=== PATIENT | male | born 1975 | race Caucasian/White ===

== ENCOUNTER 2018-06-03 15:15 | Emergency (ER) | payer OTHER ==
[~2018-06-03] VITALS: Ht 182.9 cm; Wt 112.5 kg
[2018-06-03] MEDS ORDERED: ASPIRIN 325 MG TABLET PO ONE (16:00)
--- NOTE | 2018-06-03 16:03 | EKG ---
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
--- NOTE | 2018-06-03 16:08 | PHYS DOC ---
Past Medical History Past Medical History: Hypertension Adult General Chief Complaint Chief Complaint: CHEST PAIN-CARDIAC NATURE HPI HPI Patient is a 42 year old male with a history of hypertension but is currently controlled by diet and exercise who presents today with multiple complaints. Patient states sometime this morning he developed bilateral upbeat pain rated at 3 out of 10 described as discomfort, but lasted for a few minutes. Patient states then later on during the morning he developed some tingling along his ulnar nerve that was intermittent. Patient states the symptoms were coming and going to bilateral upper extremities. He states he also developed a 3 out of 10 left upper chest discomfort. Patient states the symptoms subsided right away. She states right now he doesn't have any symptoms. Patient states he used to smoke but stopped smoking. Patient has hx of anxiety stopped taking Effexor because it interfered with his sex life. Review of Systems Review of Systems Constitutional: Denies fever or chills [] Eyes: Denies change in visual acuity, redness, or eye pain [] HENT: Denies nasal congestion or sore throat [] Respiratory: Denies cough or shortness of breath [] Cardiovascular: Reports chest discomfort GI: Denies abdominal pain, nausea, vomiting, bloody stools or diarrhea [] : Denies dysuria or hematuria [] Musculoskeletal: Denies back pain or joint pain [] Integument: Denies rash or skin lesions [] Neurologic: Denies headache, focal weakness or sensory changes [] All other systems were reviewed and found to be within normal limits, except as documented in this note. Current Medications Current Medications Current Medications Medications (Trade) Dose Ordered Sig/Josefina Start Time Stop Time Status Last Admin Dose Admin Aspirin (Sally Aspirin) 325 mg 1X ONCE 06/03/18 16:00 06/03/18 16:13 DC 06/03/18 16:22 325 MG Allergies Allergies Allergies Coded Allergies Type Severity Reaction Last Updated Verified No Known Drug Allergies 06/03/18 No Physical Exam Physical Exam Constitutional: Well developed, well nourished, no acute distress, non-toxic appearance. [] HENT: Normocephalic, atraumatic, bilateral external ears normal, oropharynx moist, no oral exudates, nose normal. [] Eyes: PERRLA, EOMI, conjunctiva normal, no discharge. [] Neck: Normal range of motion, no tenderness, supple, no stridor. [] Cardiovascular:Heart rate regular rhythm, no murmur [] Lungs & Thorax: Bilateral breath sounds clear to auscultation [] Abdomen: Bowel sounds normal, soft, no tenderness, no masses, no pulsatile masses. [] Skin: Warm, dry, no erythema, no rash. [] Back: No tenderness, no CVA tenderness. [] Extremities: No tenderness, no cyanosis, no clubbing, ROM intact, no edema. [] Neurologic: Alert and oriented X 3, normal motor function, normal sensory function, no focal deficits noted. [] Psychologic: Affect normal, judgement normal, mood normal. [] Current Patient Data Vital Signs Vital Signs Date Time Temp Pulse Resp B/P (MAP) Pulse Ox O2 Delivery O2 Flow Rate FiO2 06/03/18 16:21 78 141/88 (105) 99 Room Air 06/03/18 15:47 97.7 18 97.7 Lab Values Laboratory Tests Test 06/03/18 16:00 06/03/18 17:14 White Blood Count 6.3 x10^3/uL (4.0-11.0) Red Blood Count 5.14 x10^6/uL (4.30-5.70) Hemoglobin 16.2 g/dL (13.0-17.5) Hematocrit 47.9 % (39.0-53.0) Mean Corpuscular Volume 93 fL (79-100) Mean Corpuscular Hemoglobin 32 pg (25-35) Mean Corpuscular Hemoglobin Concent 34 g/dL (31-37) Red Cell Distribution Width 12.9 % (11.5-14.5) Platelet Count 235 x10^3/uL (140-400) Neutrophils (%) (Auto) 55 % (31-73) Lymphocytes (%) (Auto) 32 % (24-48) Monocytes (%) (Auto) 10 % (0-9) H Eosinophils (%) (Auto) 2 % (0-3) Basophils (%) (Auto) 1 % (0-3) Neutrophils # (Auto) 3.5 x10^3uL (1.8-7.7) Lymphocytes # (Auto) 2.0 x10^3/uL (1.0-4.8) Monocytes # (Auto) 0.6 x10^3/uL (0.0-1.1) Eosinophils # (Auto) 0.1 x10^3/uL (0.0-0.7) Basophils # (Auto) 0.1 x10^3/uL (0.0-0.2) D-Dimer (Laverne) 0.27 ug/mlFEU (0.00-0.50) Sodium Level 138 mmol/L (136-145) Potassium Level 3.8 mmol/L (3.5-5.1) Chloride Level 100 mmol/L (98-107) Carbon Dioxide Level 28 mmol/L (21-32) Anion Gap 10 (6-14) Blood Urea Nitrogen 11 mg/dL (8-26) Creatinine 0.9 mg/dL (0.7-1.3) Estimated GFR (Cockcroft-Gault) 93.0 BUN/Creatinine Ratio 12 (6-20) Glucose Level 99 mg/dL (70-99) Calcium Level 9.1 mg/dL (8.5-10.1) Magnesium Level 2.0 mg/dL (1.8-2.4) Total Bilirubin 0.6 mg/dL (0.2-1.0) Aspartate Amino Transferase (AST) 59 U/L (15-37) H Alanine Aminotransferase (ALT) 99 U/L (16-63) H Alkaline Phosphatase 77 U/L (46-116) Troponin I Quantitative < 0.017 ng/mL (0.000-0.055) JG-Vkz-E-Type Natriuretic Peptide 9 pg/mL (0-124) Total Protein 7.8 g/dL (6.4-8.2) Albumin 3.8 g/dL (3.4-5.0) Albumin/Globulin Ratio 1.0 (1.0-1.7) Thyroid Stimulating Hormone (TSH) 2.424 uIU/mL (0.358-3.74) Urine Color Yellow Urine Clarity Clear Urine pH 7.5 Urine Specific [place] 1.020 Urine Protein Negative mg/dL (NEG-TRACE) Urine Glucose (UA) Negative mg/dL (NEG) Urine Ketones (Stick) 15 mg/dL (NEG) Urine Blood Negative (NEG) Urine Nitrite Negative (NEG) Urine Bilirubin Negative (NEG) Urine Urobilinogen Dipstick 0.2 mg/dL (0.2 mg/dL) Urine Leukocyte Esterase Negative (NEG) Urine RBC 0 /HPF (0-2) Urine WBC Occ /HPF (0-4) Urine Squamous Epithelial Cells Occ /LPF Urine Bacteria 0 /HPF (0-FEW) Urine Opiates Screen Neg (NEG) Urine Methadone Screen Neg (NEG) Urine Barbiturates Neg (NEG) Urine Phencyclidine Screen Neg (NEG) Urine Amphetamine/Methamphetamine Neg (NEG) Urine Benzodiazepines Screen Neg (NEG) Urine Cocaine Screen Neg (NEG) Urine Cannabinoids Screen Neg (NEG) Urine Ethyl Alcohol Neg (NEG) Laboratory Tests 06/03/18 16:00 Laboratory Tests 06/03/18 16:00 EKG EKG 15:[address] Fregoso sinus rhythm HR 71 no STEMI[] Radiology/Procedures Radiology/Procedures []PROCEDURE: PORTABLE CHEST 1V AP chest 06/03/2018 CLINICAL INDICATION: Chest pain and tingling into the left arm. COMPARISON: None. FINDINGS: Cardiac and mediastinal silhouettes are unremarkable. No pleural effusion, pneumothorax or focal consolidation. IMPRESSION: No acute cardiopulmonary abnormality. Electronically signed by: Kenney Berg MD (06/03/2018 4:04 PM) [facility] DICTATED and SIGNED BY: KENNEY BERG MD DATE: 06/03/18 1604 PROCEDURE: CT HEAD WO CONTRAST PQRS Compliance Statement: One or more of the following individualized dose reduction techniques were utilized for this examination: 1. Automated exposure control 2. Adjustment of the mA and/or kV according to patient size 3. Use of iterative reconstruction technique CT head without contrast 06/03/2018 4:01 PM INDICATION: Left arm numbness and tingling COMPARISON: None available TECHNIQUE: Multiple axial CT images of the head were obtained from skull base through the vertex without intravenous contrast. FINDINGS: Head: Ventricles, sulci and basal cisterns are within normal limits. There is no hydrocephalus. Gallardo-white matter differentiation is normal. There is no acute intracranial hemorrhage. There is no mass, mass effect or midline shift. Posterior fossa is normal in appearance. There is attenuation higher than that of simple fluid within the suprasellar cistern measuring approximately 18 x 13 mm. Visualized portions of the orbits are normal. Paranasal sinuses are well aerated. Mastoid air cells are well aerated. Scalp and calvaria are normal. IMPRESSION: No acute intracranial hemorrhage. There is attenuation higher than that of simple fluid and suprasellar cistern measuring 18 x 13 mm. Further characterization with pituitary protocol MRI may be of benefit. Consideration may be given for a suprasellar mass or artifact within the suprasellar cistern. Electronically signed by: Zac Nj MD (06/03/2018 4:20 PM) [facility] DICTATED and SIGNED BY: ZAC NJ MD DATE: 06/03/18 1618 Course & Med Decision Making Course & Med Decision Making Pertinent Labs and Imaging studies reviewed. (See chart for details) This is a 42-year-old male patient presenting to the ED today with multiple complaints including bilateral armpit pain, numbness tingling to bilateral upper extremities running through the ulnar aspect, what he describes as chest discomfort rated at 3/10. Symptoms since this morning. Vitals on arrival to the ED temperature 97.7 heart rate 72-78, respiration 18-20 blood pressure 140s over 80s. Patient appeared anxious on arrival to the ED, has history of anxiety , was on Effexor, stopped taking it because it interfered with his sex life. He was advised to follow-up with his PCP for anxiety and medications to manage his symptoms. EKG is negative, chest x-ray is negative, troponin is normal, CBC is normal, CMP with AST of 59 ALT of 99, patient has no abdominal pain. D-dimer is normal. Heart score 1-patient should follow-up with coffee weigher as an outpatient. CT of the head was negative for any acute intracranial hemorrhage, was noted for attenuation higher than that of simple fluid and suprasellar cistern measuring 18 x 13 mm. Further characterization with pituitary protocol MRI may be of benefit. Consideration may be given for a suprasellar mass or artifact within the suprasellar cistern. Results were discussed with the patient, provided instructions to follow-up with the PCP or neurologist for an outpatient MRI in 2 days. F/u with coffee weigher provided in the next 2 days. Dragon Disclaimer Dragon Disclaimer This electronic medical record was generated, in whole or in part, using a voice recognition dictation system. Departure Departure Impression: Primary Impression: Chest pain Additional Impressions: Radiculopathy of arm Anxiety Disposition: HOME, SELF-CARE Condition: STABLE Referrals: NO PCP (PCP) SAKINA CASTELLON MD follow up in 1 -2 days Patient Instructions: Chest Pain (Nonspecific), Radicular Pain Additional Instructions: You were evaluated in the emergency room. Please follow-up with the primary care doctor in the next 2 days for your symptoms including results showing up on his CT. Also follow-up with the coffee weigher if your chest discomfort continues. Problem Qualifiers Primary Impression: Chest pain Chest pain type: unspecified Qualified Codes: R07.9 - Chest pain, unspecified GEOVANNAMUKESH MUJICA DIA Jun 03, 2018 16:08
[2018-06-03 16:13] LABS: BASO # 0.1 x10^3/uL (0.0-0.2); BASO % 1 % (0-3); EOS # 0.1 x10^3/uL (0.0-0.7); EOS % 2 % (0-3); HEMATOCRIT 47.9 % (39.0-53.0); HEMOGLOBIN 16.2 g/dL (13.0-17.5); LYMPH % 32 % (24-48); MEAN CORPUSCULAR HEMOGLOBIN 32 pg (25-35); MEAN CORPUSCULAR HGB CONC 34 g/dL (31-37); MEAN CORPUSCULAR VOLUME 93 fL (79-100); MONO # 0.6 x10^3/uL (0.0-1.1); MONO % 10 % (0-9); NEUT # 3.5 x10^3uL (1.8-7.7); NEUT % 55 % (31-73); PLATELET COUNT 235 x10^3/uL (140-400); RED BLOOD COUNT 5.14 x10^6/uL (4.30-5.70); RED CELL DISTRIBUTION WIDTH 12.9 % (11.5-14.5); WHITE BLOOD COUNT 6.3 x10^3/uL (4.0-11.0)
--- NOTE | 2018-06-03 16:25 | RAD ---
RS Compliance Statement: One or more of the following individualized dose reduction techniques were utilized for this examination: 1. Automated exposure control 2. Adjustment of the mA and/or kV according to patient size 3. Use of iterative reconstruction technique CT head without contrast 06/03/2018 4:01 PM INDICATION: Left arm numbness and tingling COMPARISON: None available TECHNIQUE: Multiple axial CT images of the head were obtained from skull base through the vertex without intravenous contrast. FINDINGS: Head: Ventricles, sulci and basal cisterns are within normal limits. There is no hydrocephalus. Gallardo-white matter differentiation is normal. There is no acute intracranial hemorrhage. There is no mass, mass effect or midline shift. Posterior fossa is normal in appearance. There is attenuation higher than that of simple fluid within the suprasellar cistern measuring approximately 18 x 13 mm. Visualized portions of the orbits are normal. Paranasal sinuses are well aerated. Mastoid air cells are well aerated. Scalp and calvaria are normal. IMPRESSION: No acute intracranial hemorrhage. There is attenuation higher than that of simple fluid and suprasellar cistern measuring 18 x 13 mm. Further characterization with pituitary protocol MRI may be of benefit. Consideration may be given for a suprasellar mass or artifact within the suprasellar cistern. Electronically signed by: Dora Contreras MD (06/03/2018 4:20 PM) [facility]
[2018-06-03 16:30] LABS: CALCIUM 9.1 mg/dL (8.5-10.1); CREATININE 0.9 mg/dL (0.7-1.3); POTASSIUM 3.8 mmol/L (3.5-5.1)
[2018-06-03 16:35] LABS: ALBUMIN 3.8 g/dL (3.4-5.0); TOTAL BILIRUBIN 0.6 mg/dL (0.2-1.0); TOTAL PROTEIN 7.8 g/dL (6.4-8.2)
[2018-06-03 17:23] LABS: BILIRUBIN,URINE NEGATIVE (NEG); CLARITY,URINE CLEAR; COLOR,URINE YELLOW; NITRITE,URINE NEGATIVE (NEG); PH,URINE 7.5; PROTEIN,URINE NEGATIVE (NEG-TRACE); UROBILINOGEN,URINE 0.2 mg/dL (0.2 mg/dL)
[2018-06-03 17:36] LABS: BACTERIA,URINE 0 /HPF (0-FEW); RBC,URINE 0 /HPF (0-2); SQUAMOUS EPITHELIAL CELL,UR OCC /LPF; WBC,URINE OCC /HPF (0-4)
[2018-06-03 17:39] LABS: AMPHETAMINE/METHAMPHETAMINE NEG (NEG); BARBITURATES NEG (NEG); BENZODIAZEPINES NEG (NEG); CANNABINOIDS NEG (NEG); COCAINE NEG (NEG); METHADONE NEG (NEG); OPIATES NEG (NEG); PHENCYCLIDINE NEG (NEG)
[2018-06-03 18:19] VITALS: BP 137/88
== END 2018-06-03 18:32 | disposition home or self-care (01) ==
LOC: ER 15:15
DX: R07.89 Other chest pain (principal); M54.10 Radiculopathy, site unspecified; F41.9 Anxiety disorder, unspecified; I10 Essential (primary) hypertension; Z87.891 Personal history of nicotine dependence
CPT/HCPCS: 36415; 70450; 71045; 80053; 80307; 81001; 83735; 83880; 84443; 84484; 85025; 85379; 93005; 96365; 96366; 96367; 99284-25; 99285-25

== ENCOUNTER 2018-12-17 04:23 | Emergency (ER) | payer OTHER ==
[~2018-12-17] VITALS: Ht 182.9 cm; Wt 117.0 kg
[2018-12-17 04:55] LABS: BASO % 1 % (0-3); EOS # 0.3 x10^3/uL (0.0-0.7); EOS % 4 % (0-3); HEMATOCRIT 45.3 % (39.0-53.0); HEMOGLOBIN 15.6 g/dL (13.0-17.5); LYMPH # 2.9 x10^3/uL (1.0-4.8); LYMPH % 44 % (24-48); MEAN CORPUSCULAR HEMOGLOBIN 33 pg (25-35); MEAN CORPUSCULAR HGB CONC 35 g/dL (31-37); MEAN CORPUSCULAR VOLUME 94 fL (79-100); MONO # 0.7 x10^3/uL (0.0-1.1); MONO % 11 % (0-9); NEUT # 2.6 x10^3/uL (1.8-7.7); NEUT % 40 % (31-73); PLATELET COUNT 271 x10^3/uL (140-400); RED CELL DISTRIBUTION WIDTH 12.9 % (11.5-14.5); WHITE BLOOD COUNT 6.5 x10^3/uL (4.0-11.0)
--- NOTE | 2018-12-17 04:58 | EKG ---
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
[2018-12-17] MEDS ORDERED: NITROGLYCERIN SUBLINGUAL 0.4 MG BOTTLE OF 25. SL ONE (05:00)
--- NOTE | 2018-12-17 05:00 | PHYS DOC ---
Past Medical History Past Medical History: Anxiety, Hypertension, Other Additional Past Medical Histor: SLEEP APNEA W CPAP Past Surgical History: Appendectomy, Tonsillectomy, Other Additional Past Surgical Histo: HERNIA, MULTIPLE COLONOSCOPY Alcohol Use: Occasionally Drug Use: None Adult General Chief Complaint Chief Complaint: CHEST PAIN HPI HPI Patient is a 43 year old male who presents with complaining of chest pain. Patient complaining of intermittent episodes of left-sided chest squeezing pain for the last 3 days that usually last about few minutes and have pain for 5 times. Patient denies radiation of pain but complaining of dizziness, shortness of breath, generalized weakness without nausea and vomiting, fever and chills, cough and congestion, focal neuro deficit. Patient states he had 20 minutes of physical activity before starting of his pain and the pain getting worse with movement. Review of Systems Review of Systems Constitutional: Denies fever or chills [] Eyes: Denies change in visual acuity, redness, or eye pain [] HENT: Denies nasal congestion or sore throat [] Respiratory: Denies cough, reports shortness of breath [] Cardiovascular: No additional information not addressed in HPI [] GI: Denies abdominal pain, nausea, vomiting, bloody stools or diarrhea [] : Denies dysuria or hematuria [] Musculoskeletal: Denies back pain or joint pain [] Integument: Denies rash or skin lesions [] Neurologic: Denies headache, focal weakness or sensory changes [] Endocrine: Denies polyuria or polydipsia [] All other systems were reviewed and found to be within normal limits, except as documented in this note. Current Medications Current Medications Current Medications Medications (Trade) Dose Ordered Sig/Josefina Start Time Stop Time Status Last Admin Dose Admin Aspirin (Children'S Aspirin) 243 mg 1X ONCE 12/17/18 05:15 12/17/18 05:16 DC Nitroglycerin (Nitrostat) 0.4 mg 1X ONCE 12/17/18 05:00 12/17/18 05:11 DC 12/17/18 05:13 0.4 MG Allergies Allergies Allergies Coded Allergies Type Severity Reaction Last Updated Verified No Known Drug Allergies 06/03/18 No Physical Exam Physical Exam Constitutional: Well developed, well nourished, mild distress, non-toxic appearance. [] HENT: Normocephalic, atraumatic, oropharynx moist. Eyes: PERRLA, EOMI, conjunctiva normal, no discharge. [] Neck: Normal range of motion, no tenderness, supple, no stridor. [] Cardiovascular:Heart rate regular rhythm, no murmur [] Lungs & Thorax: Bilateral breath sounds clear to auscultation [] Abdomen: Bowel sounds normal, soft, no tenderness, no masses, no pulsatile masses. [] Skin: Warm, dry, no erythema, no rash. [] Back: No tenderness, no CVA tenderness. [] Extremities: No tenderness, no cyanosis, no clubbing, ROM intact, no edema. [] Neurologic: Alert and oriented X 3, normal motor function, normal sensory function, no focal deficits noted. [] Psychologic: Affect normal, judgement normal, mood normal. [] Current Patient Data Vital Signs Vital Signs Date Time Temp Pulse Resp B/P (MAP) Pulse Ox O2 Delivery O2 Flow Rate FiO2 12/17/18 05:13 85 141/85 12/17/18 04:26 97.7 18 100 Room Air 97.7 Lab Values Laboratory Tests Test 12/17/18 04:30 White Blood Count 6.5 x10^3/uL (4.0-11.0) Red Blood Count 4.80 x10^6/uL (4.30-5.70) Hemoglobin 15.6 g/dL (13.0-17.5) Hematocrit 45.3 % (39.0-53.0) Mean Corpuscular Volume 94 fL (79-100) Mean Corpuscular Hemoglobin 33 pg (25-35) Mean Corpuscular Hemoglobin Concent 35 g/dL (31-37) Red Cell Distribution Width 12.9 % (11.5-14.5) Platelet Count 271 x10^3/uL (140-400) Neutrophils (%) (Auto) 40 % (31-73) Lymphocytes (%) (Auto) 44 % (24-48) Monocytes (%) (Auto) 11 % (0-9) H Eosinophils (%) (Auto) 4 % (0-3) H Basophils (%) (Auto) 1 % (0-3) Neutrophils # (Auto) 2.6 x10^3/uL (1.8-7.7) Lymphocytes # (Auto) 2.9 x10^3/uL (1.0-4.8) Monocytes # (Auto) 0.7 x10^3/uL (0.0-1.1) Eosinophils # (Auto) 0.3 x10^3/uL (0.0-0.7) Basophils # (Auto) 0.0 x10^3/uL (0.0-0.2) Prothrombin Time 11.7 SEC (11.7-14.0) Prothrombin Time INR 0.9 (0.8-1.1) Sodium Level 140 mmol/L (136-145) Potassium Level 4.1 mmol/L (3.5-5.1) Chloride Level 101 mmol/L (98-107) Carbon Dioxide Level 28 mmol/L (21-32) Anion Gap 11 (6-14) Blood Urea Nitrogen 9 mg/dL (8-26) Creatinine 0.9 mg/dL (0.7-1.3) Estimated GFR (Cockcroft-Gault) 92.5 BUN/Creatinine Ratio 10 (6-20) Glucose Level 103 mg/dL (70-99) H Calcium Level 9.1 mg/dL (8.5-10.1) Magnesium Level 1.9 mg/dL (1.8-2.4) Total Bilirubin 0.5 mg/dL (0.2-1.0) Aspartate Amino Transferase (AST) 45 U/L (15-37) H Alanine Aminotransferase (ALT) 97 U/L (16-63) H Alkaline Phosphatase 70 U/L (46-116) Creatine Kinase 348 U/L (39-308) H Troponin I Quantitative < 0.017 ng/mL (0.000-0.055) EK-Ioo-K-Type Natriuretic Peptide 22 pg/mL (0-124) Total Protein 7.7 g/dL (6.4-8.2) Albumin 4.2 g/dL (3.4-5.0) Albumin/Globulin Ratio 1.2 (1.0-1.7) Lipase 251 U/L (73-393) Laboratory Tests 12/17/18 04:30 Laboratory Tests 12/17/18 04:30 EKG EKG EKG interpreted by me. EKG at 0432 showed normal sinus rhythm at rate of 74, normal PA and QT intervals, no acute ST and T-wave abnormalities. Radiology/Procedures Radiology/Procedures [][facility] [address] [place] [address] IMAGING REPORT Signed PATIENT: BRENT BORRERO ACCOUNT: [id number] : 1975 LOCATION: ER AGE: 43 SEX: M EXAM STATUS: REG ER ORD. PHYSICIAN: FLORESITA KAYE MD REASON: chest pain PROCEDURE: PORTABLE CHEST 1V Single view chest dated 12/17/2018. Comparison made to 06/03/2018. CLINICAL INDICATION: Chest pain. FINDINGS: Single upright portable exam performed. Heart and mediastinal contours within normal limits. Lungs are hyperinflated but otherwise clear. No consolidation or pleural effusion. No pneumothorax. IMPRESSION: No acute radiographic abnormality. Electronically signed by: Tyrell Faith MD (12/17/2018 5:32 AM) [facility] DICTATED and SIGNED BY: TYRELL FAITH MD DATE: 12/17/18 0532 Course & Med Decision Making Course & Med Decision Making Pertinent Labs and Imaging studies reviewed. (See chart for details) Evaluation of patient in ER showed 43-year-old male patient with heart score of 4 with complaining of episodes of chest pain after physical activity. Patient had unremarkable physical exam and labs and EKG and chest x-ray except for mild elevation of liver function tests. Plan discharge patient home with diagnosis of musculoskeletal chest pain and advised to follow-up with his primary care physician for more cardiac evaluation. Dragon Disclaimer Dragon Disclaimer This electronic medical record was generated, in whole or in part, using a voice recognition dictation system. Departure Departure Impression: Primary Impression: Musculoskeletal chest pain Additional Impressions: Elevated liver function tests Rhabdomyolysis Disposition: HOME, SELF-CARE (at 0615) Condition: IMPROVED Referrals: NO PCP (PCP) Patient Instructions: Chest Wall Pain, Rhabdomyolysis Additional Instructions: Drink plenty of liquids Follow-up with your primary care physician in 2-3 days for further evaluation for heart Return to ER if not getting better The HEART Score for CP Pts HEART Score for Chest Pain: HEART Score for Chest Pain Response (Comments) Value History Moderately Suspicious 1 ECG Nonspecific Repolarizatio 1 Age < 45 0 Risk Factors >3 Risk Factors or Hx CAD 2 Troponin < Normal Limit 0 Total 4 Risk Factors: Risk Factors: DM, Current or recent (<one month) smoker, HTN, HLP, family history of CAD, obesity. Risk Scores: Score 0 - 3: 2.5% MACE over next 6 weeks - Discharge Home Score 4 - 6: 20.3% MACE over next 6 weeks - Admit for Clinical Observation Score 7 - 10: 72.7% MACE over next 6 weeks - Early Invasive Strategies Problem Qualifiers Additional Impressions: Rhabdomyolysis Rhabdomyolysis type: non-traumatic Qualified Codes: M62.82 - Rhabdomyolysis FLORESITA KAYE MD Dec 17, 2018 05:00
[2018-12-17 05:04] LABS: CALCIUM 9.1 mg/dL (8.5-10.1); CREATININE 0.9 mg/dL (0.7-1.3); GFR 92.5; POTASSIUM 4.1 mmol/L (3.5-5.1)
[2018-12-17 05:05] LABS: PROTHROMBIN TIME PATIENT 11.7 SEC (11.7-14.0)
[2018-12-17 05:11] LABS: ALBUMIN 4.2 g/dL (3.4-5.0); ALBUMIN/GLOBULIN RATIO 1.2 (1.0-1.7); MAGNESIUM 1.9 mg/dL (1.8-2.4); TOTAL BILIRUBIN 0.5 mg/dL (0.2-1.0); TOTAL PROTEIN 7.7 g/dL (6.4-8.2)
[2018-12-17] MEDS ORDERED: ASPIRIN CHEWABLE 81 MG TABLET. PO ONE (05:15)
--- NOTE | 2018-12-17 05:35 | RAD ---
Single view chest dated 12/17/2018. Comparison made to 06/03/2018. CLINICAL INDICATION: Chest pain. FINDINGS: Single upright portable exam performed. Heart and mediastinal contours within normal limits. Lungs are hyperinflated but otherwise clear. No consolidation or pleural effusion. No pneumothorax. IMPRESSION: No acute radiographic abnormality. Electronically signed by: Tyrell Faith MD (12/17/2018 5:32 AM) [facility]
[2018-12-17 06:00] VITALS: BP 129/75
== END 2018-12-17 06:34 | disposition home or self-care (01) ==
LOC: ER 04:23
DX: R07.89 Other chest pain (principal); M62.82 Rhabdomyolysis; R79.89 Other specified abnormal findings of blood chemistry; R42 Dizziness and giddiness; R06.02 Shortness of breath; F41.9 Anxiety disorder, unspecified; I10 Essential (primary) hypertension; Z79.82 Long term (current) use of aspirin; Z90.89 Acquired absence of other organs
CPT/HCPCS: 36415; 71045; 80053; 82550; 83690; 83735; 83880; 84484; 85025; 85610; 93005; 99285

== ENCOUNTER 2019-05-11 15:27 | Emergency (ER) | payer OTHER ==
[~2019-05-11] VITALS: Ht 182.9 cm; Wt 112.0 kg
[2019-05-11 15:37] VITALS: BP 137/88
--- NOTE | 2019-05-11 15:46 | PHYS DOC ---
Past Medical History Past Medical History: Anxiety, Hypertension, Other Additional Past Medical Histor: SLEEP APNEA W CPAP Past Surgical History: Appendectomy, Tonsillectomy, Other Additional Past Surgical Histo: HERNIA, MULTIPLE COLONOSCOPY Alcohol Use: Occasionally Drug Use: None Adult General Chief Complaint Chief Complaint: FLU SYMPTOM HPI HPI Patient is a 43 year old male with history of anxiety, hypertension, who presents to the ED today complaining of a dry cough with sore throat and body aches, symptoms began 5 days ago. Patient denies any fever. Patient reports he stopped smoking last year. Review of Systems Review of Systems Constitutional: Denies fever, reports body aches Eyes: Denies change in visual acuity, redness, or eye pain [] HENT: Reports sore throat. Denies nasal congestion Respiratory: Reports cough, denies shortness of breath [] Cardiovascular: No additional information not addressed in HPI [] GI: Denies abdominal pain, nausea, vomiting, bloody stools or diarrhea [] : Denies dysuria or hematuria [] Musculoskeletal: Denies back pain or joint pain [] Integument: Denies rash or skin lesions [] Neurologic: Denies headache, focal weakness or sensory changes [] All other systems were reviewed and found to be within normal limits, except as documented in this note. Current Medications Current Medications Current Medications Medications (Trade) Dose Ordered Sig/Josefina Start Time Stop Time Status Last Admin Dose Admin Albuterol/ Ipratropium (Duoneb) 3 ml 1X ONCE 05/11/19 16:15 05/11/19 16:16 DC Benzonatate (Tessalon Perle) 100 mg 1X ONCE 05/11/19 16:15 05/11/19 16:16 DC 05/11/19 16:01 100 MG Prednisone (Prednisone) 50 mg 1X ONCE 05/11/19 16:15 05/11/19 16:16 DC 05/11/19 16:01 50 MG Allergies Allergies Allergies Coded Allergies Type Severity Reaction Last Updated Verified No Known Drug Allergies 06/03/18 No Physical Exam Physical Exam Constitutional: Well developed, well nourished, no acute distress, non-toxic appearance. [] HENT: Normocephalic, atraumatic, bilateral external ears normal, oropharynx moist, no oral exudates, nose normal. [] Eyes: PERRLA, EOMI, conjunctiva normal, no discharge. [] Neck: Normal range of motion, no tenderness, supple, no stridor. [] Cardiovascular:Heart rate regular rhythm, no murmur [] Lungs & Thorax: Bilateral breath sounds clear to auscultation [] Abdomen: Bowel sounds normal, soft, no tenderness, no masses, no pulsatile masses. [] Skin: Warm, dry, no erythema, no rash. [] Back: No tenderness, no CVA tenderness. [] Extremities: No tenderness, no cyanosis, no clubbing, ROM intact, no edema. [] Neurologic: Alert and oriented X 3, normal motor function, normal sensory function, no focal deficits noted. [] Psychologic: Affect normal, judgement normal, mood normal. [] Current Patient Data Vital Signs Vital Signs Date Time Temp Pulse Resp B/P (MAP) Pulse Ox O2 Delivery O2 Flow Rate FiO2 05/11/19 15:37 98.4 97 14 137/88 (104) 98 Room Air 98.4 EKG EKG [] Radiology/Procedures Radiology/Procedures []PROCEDURE: CHEST PA & LATERAL PA and lateral chest. HISTORY: Cough PA and lateral views were taken of the chest. Lungs are clear. Heart is normal in size. There is no pleural effusion. IMPRESSION: 1. No acute chest disease. Electronically signed by: Maciej Alvarez MD (05/11/2019 4:13 PM) [id number] DICTATED and SIGNED BY: MACIEJ ALVAREZ MD DATE: 05/11/19 1613 Course & Med Decision Making Course & Med Decision Making Pertinent Labs and Imaging studies reviewed. (See chart for details) This is a 43-year-old male patient presenting to the ED today with sore throat cough and body aches, symptoms began 5 days ago. Negative rapid strep, chest x-ray interpreted by radiologist as negative. Symptoms are likely viral. Supportive care measures recommended. Follow-up with primary care doctor in one week. Dragon Disclaimer Dragon Disclaimer This electronic medical record was generated, in whole or in part, using a voice recognition dictation system. Departure Departure Impression: Primary Impression: Acute bronchitis Additional Impression: Upper respiratory infection Disposition: HOME, SELF-CARE Condition: STABLE Referrals: NO PCP (PCP) follow up with your doctor in 1-2 weeks Patient Instructions: Acute Bronchitis, [id number], Upper Respiratory Infection, Adult, [id number] Additional Instructions: You were evaluated in the emergency room, your chest x-ray is negative, your strep test is negative. We encourage you to use the prescribed medications as ordered. Follow-up with your own doctor in 1-2 weeks. Scripts Albuterol Sulfate (Proair Hfa) 8.5 Gm Hfa.aer.ad 2 PUFF IH PRN Q4-6HRS PRN for wheezing for 21 Days, #1 INHALER 0 Refills Prov: MUKESH [employer] 05/11/19 Benzonatate (TESSALON PERLE) 100 Mg Capsule 1 CAP PO TID, #30 CAP Prov: MUTGRIFFINAMUKESH [employer] 05/11/19 Prednisone (PREDNISONE) 50 Mg Tablet 1 TAB PO DAILY, #5 TAB Prov: MUKESH [employer] 05/11/19 Problem Qualifiers Primary Impression: Acute bronchitis Bronchitis organism: unspecified organism Qualified Codes: J20.9 - Acute bronchitis, unspecified Additional Impression: Upper respiratory infection URI type: unspecified URI Qualified Codes: J06.9 - Acute upper respiratory infection, unspecified MUKESH [employer] May 11, 2019 15:46
[2019-05-11] MEDS: predniSONE 10 MG TABLET PO ONE (16:01)
[2019-05-11] MEDS: BENZONATATE 100 MG CAPSULE. PO ONE (16:01)
--- NOTE | 2019-05-11 16:16 | RAD ---
PA and lateral chest. HISTORY: Cough PA and lateral views were taken of the chest. Lungs are clear. Heart is normal in size. There is no pleural effusion. IMPRESSION: 1. No acute chest disease. Electronically signed by: Maciej Jang MD (05/11/2019 4:13 PM) [id number]
[2019-05-11] MEDS: IPRATRPIUM/ALBUTEROL 0.5/2.5MG 3 ML NEBU. NEB ONE (16:19)
[2019-05-11] MEDS ORDERED: PRED50TA PO (16:24)
[2019-05-11] MEDS ORDERED: ALBU2.5V8 IH (16:24)
[2019-05-11] MEDS ORDERED: BENZ100C PO (16:24)
== END 2019-05-11 16:29 | disposition home or self-care (01) ==
LOC: ER 15:27
DX: J20.9 Acute bronchitis, unspecified (principal); J06.9 Acute upper respiratory infection, unspecified; I10 Essential (primary) hypertension
CPT/HCPCS: 71046; 87070; 87880; 94640; 99285; J7512; J7620

== ENCOUNTER 2020-06-04 23:14 | Emergency (ER) | payer OTHER ==
[~2020-06-04] VITALS: Ht 182.9 cm; Wt 116.4 kg
[~2020-06-04 23:14] MED LIST: ALBU2.5V8 IH; BENZ100C PO; PRED50TA PO
--- NOTE | 2020-06-04 23:56 | ED.ADGEN ---
Past Medical History Past Medical History: Anxiety, Hypertension, Other Additional Past Medical Histor: SLEEP APNEA W CPAP, ACUTE LIVER DISEASE Past Surgical History: Appendectomy, Tonsillectomy, Other Additional Past Surgical Histo: BILATERAL HERNIA, MULTIPLE COLONOSCOPY Smoking Status: Former Smoker Alcohol Use: Heavy Additional Information: STATES HE HAS DRANK A GROWLER/ DAY FOR THE LAST WEEK EXCEPT YESTERDAY Drug Use: None General Adult EDM: Chief Complaint: CHEST PAIN HPI: HPI: Patient is a 44 year old male coming in for left-sided chest congestion present for about 24 hours. Patient states the pain is sharp and radiates from his left anterior chest to the shoulder blade. States is worse with raising his hand above his head. Has not had this kind of pain in the past. Denies any cough or shortness of breath. States pain is not worse taking a deep breath. No vomiting or diarrhea. Patient was diagnosed with Covid April 11 and the end of that month. Recovered started noticing right lower extremity edema and right calf pain. Says the right calf pain has gotten better and was not seen for that. But now states he is having denies any personal family history of blood clots. States he quit smoking about a year and a half ago. Has a history of hypertension Review of Systems: Review of Systems: Constitutional: Denies fever or chills. [] Eyes: Denies change in visual acuity. [] HENT: Denies nasal congestion or sore throat. [] Respiratory: Denies cough or shortness of breath. [] Cardiovascular: Denies chest pain or edema. [] GI: Denies abdominal pain, nausea, vomiting, bloody stools or diarrhea. [] : Denies dysuria. [] Musculoskeletal: Denies back pain or joint pain. [] Integument: Denies rash. [] Neurologic: Denies headache, focal weakness or sensory changes. [] Endocrine: Denies polyuria or polydipsia. [] Lymphatic: Denies swollen glands. [] Psychiatric: Denies depression or anxiety. [] Current Medications: Current Medications Medications (Trade) Dose Ordered Sig/Josefina Start Time Stop Time Status Last Admin Dose Admin Info (CONTRAST GIVEN -- Rx MONITORING) 1 each PRN DAILY PRN 06/05/20 01:00 06/07/20 00:59 Iohexol (Omnipaque 350 Mg/ml) 100 ml 1X ONCE 06/05/20 01:00 06/05/20 01:01 DC 06/05/20 01:02 100 ML Allergies: Allergies: Allergies Coded Allergies Type Severity Reaction Last Updated Verified No Known Drug Allergies 06/03/18 No Physical Exam: PE: Constitutional: Well developed, well nourished, no acute distress, non-toxic appearance. [] HENT: Normocephalic, atraumatic, bilateral external ears normal, oropharynx moist, no oral exudates, nose normal. [] Eyes: PERRLA, EOMI, conjunctiva normal, no discharge. [] Neck: Normal range of motion, no tenderness, supple, no stridor. [] Cardiovascular:Heart rate regular rhythm, no murmur [] Lungs & Thorax: Bilateral breath sounds clear to auscultation [] Abdomen: Bowel sounds normal, soft, no tenderness, no masses, no pulsatile masses. [] Skin: Warm, dry, no erythema, no rash. [] Back: No tenderness, no CVA tenderness. [] Extremities: No tenderness, no cyanosis, no clubbing, ROM intact, no edema. [] Neurologic: Alert and oriented X 3, normal motor function, normal sensory function, no focal deficits noted. [] Psychologic: Affect normal, judgement normal, mood normal. [] Current Patient Data: Labs: Laboratory Tests Test 06/04/20 23:24 06/05/20 00:42 White Blood Count 9.9 x10^3/uL (4.0-11.0) Red Blood Count 5.14 x10^6/uL (4.30-5.70) Hemoglobin 16.4 g/dL (13.0-17.5) Hematocrit 48.0 % (39.0-53.0) Mean Corpuscular Volume 93 fL (79-100) Mean Corpuscular Hemoglobin 32 pg (25-35) Mean Corpuscular Hemoglobin Concent 34 g/dL (31-37) Red Cell Distribution Width 14.8 % (11.5-14.5) H Platelet Count 285 x10^3/uL (140-400) Neutrophils (%) (Auto) 61 % (31-73) Lymphocytes (%) (Auto) 26 % (24-48) Monocytes (%) (Auto) 11 % (0-9) H Eosinophils (%) (Auto) 1 % (0-3) Basophils (%) (Auto) 1 % (0-3) Neutrophils # (Auto) 6.0 x10^3/uL (1.8-7.7) Lymphocytes # (Auto) 2.6 x10^3/uL (1.0-4.8) Monocytes # (Auto) 1.1 x10^3/uL (0.0-1.1) Eosinophils # (Auto) 0.1 x10^3/uL (0.0-0.7) Basophils # (Auto) 0.1 x10^3/uL (0.0-0.2) D-Dimer (Laverne) 0.39 ug/mlFEU (0.00-0.50) Sodium Level 136 mmol/L (136-145) Potassium Level 3.5 mmol/L (3.5-5.1) Chloride Level 96 mmol/L (98-107) L Carbon Dioxide Level 26 mmol/L (21-32) Anion Gap 14 (6-14) Blood Urea Nitrogen 9 mg/dL (8-26) Creatinine 0.9 mg/dL (0.7-1.3) Estimated GFR (Cockcroft-Gault) 92.1 BUN/Creatinine Ratio 10 (6-20) Glucose Level 91 mg/dL (70-99) Calcium Level 8.8 mg/dL (8.5-10.1) Total Bilirubin 0.9 mg/dL (0.2-1.0) Aspartate Amino Transferase (AST) 38 U/L (15-37) H Alanine Aminotransferase (ALT) 70 U/L (16-63) H Alkaline Phosphatase 93 U/L (46-116) Troponin I Quantitative < 0.017 ng/mL (0.000-0.055) ZQ-Zhe-L-Type Natriuretic Peptide 8 pg/mL (0-124) Total Protein 8.0 g/dL (6.4-8.2) Albumin 4.0 g/dL (3.4-5.0) Albumin/Globulin Ratio 1.0 (1.0-1.7) Urine Collection Type Unknown Urine Color Yellow Urine Clarity Clear Urine pH 6.5 (<5.0-8.0) Urine Specific [place] 1.010 (1.000-1.030) Urine Protein Negative mg/dL (NEG-TRACE) Urine Glucose (UA) Negative mg/dL (NEG) Urine Ketones (Stick) Trace mg/dL (NEG) Urine Blood Negative (NEG) Urine Nitrite Negative (NEG) Urine Bilirubin Negative (NEG) Urine Urobilinogen Dipstick 0.2 mg/dL (0.2 mg/dL) Urine Leukocyte Esterase Negative (NEG) Urine RBC 0 /HPF (0-2) Urine WBC 0 /HPF (0-4) Urine Squamous Epithelial Cells Occ /LPF Urine Bacteria 0 /HPF (0-FEW) Laboratory Tests 06/04/20 23:24 Laboratory Tests 06/04/20 23:24 Vital Signs: Vital Signs Date Time Temp Pulse Resp B/P (MAP) Pulse Ox O2 Delivery O2 Flow Rate FiO2 06/04/20 23:16 97.8 97 18 159/100 (119) 100 Room Air 97.8 EKG: EKG: Sinus rhythm, heart rate 96 bpm, normal axis. No ST elevation or depression, no ectopy [] Heart Score: Risk Factors: Risk Factors: DM, Current or recent (<one month) smoker, HTN, HLP, family history of CAD, obesity. Risk Scores: Score 0 - 3: 2.5% MACE over next 6 weeks - Discharge Home Score 4 - 6: 20.3% MACE over next 6 weeks - Admit for Clinical Observation Score 7 - 10: 72.7% MACE over next 6 weeks - Early Invasive Strategies Radiology/Procedures: Radiology/Procedures: CT CHEST WITH CONTRAST, PULMONARY ANGIOGRAM History: Reason: PE?, LT SIDE CHEST PAIN, SOB, DIFFICUTLY BREATHING. Comparison: None. Technique: Helical CT of the chest was performed after the administration of 100 cc of Omnipaque 350 intravenous contrast according to PE protocol. Axial and coronal reconstructions were obtained. 3-D MIP images were constructed to better evaluate the pulmonary arteries. Findings: Pulmonary arteries are adequately opacified. There is no evidence of pulmonary embolism. There is no thoracic aortic dissection. Great vessels are normal caliber. There is no adenopathy in the chest. Visualized thyroid is symmetric. Cardiac size is normal, no pericardial effusion. There is no pleural abnormality. The central airways are patent. There is groun dglass opacity in the upper right middle lobe. There is moderate groundglass opacity in the posterior right lower lobe. There is patchy groundglass opacity in the lateral left upper lobe. No lung consolidation. There is fatty infiltration of the liver. Thoracic spine alignment is maintained. IMPRESSION: 1. There is no pulmonary embolus. 2. There are groundglass opacities in the upper right middle lobe, posterior basilar right lower lobe, and lateral left upper lobe. Considerations include atelectasis or pneumonitis including atypical/viral etiology or alveolar edema. 3. Fatty infiltration of the liver. Right lower extremity venous Doppler ultrasound History: Reason: swelling, calf pain / Comparison: None. Procedure: Color flow Doppler, Doppler spectral analysis, and 2D images are obtained with and without compression in the area of the common femoral vein, superficial femoral vein - femoral vein junction, main femoral vein (superficial femoral vein) and popliteal vein. Veins of the proximal calf are also imaged. Findings: There is normal color flow, augmentation, and compressibility of all visualized vein segments. No evidence of deep venous thrombus is present. IMPRESSION: No evidence of right lower extremity deep venous thrombosis. [] Course & Med Decision Making: Course & Med Decision Making Pertinent Labs and Imaging studies reviewed. (See chart for details) [] Dragon Disclaimer: Dragon Disclaimer: This electronic medical record was generated, in whole or in part, using a voice recognition dictation system. Departure Departure Impression: Primary Impression: Chest pain Additional Impression: Radiculopathy of arm Disposition: 01 DC HOME SELF CARE/HOMELESS Condition: STABLE Referrals: NO PCP (PCP) Patient Instructions: Chest Pain (Nonspecific) Problem Qualifiers ELDON PORTER MD Jun 04, 2020 23:56
[2020-06-05 00:02] LABS: BASO # 0.1 x10^3/uL (0.0-0.2); BASO % 1 % (0-3); EOS # 0.1 x10^3/uL (0.0-0.7); EOS % 1 % (0-3); HEMOGLOBIN 16.4 g/dL (13.0-17.5); LYMPH # 2.6 x10^3/uL (1.0-4.8); LYMPH % 26 % (24-48); MEAN CORPUSCULAR HEMOGLOBIN 32 pg (25-35); MEAN CORPUSCULAR HGB CONC 34 g/dL (31-37); MEAN CORPUSCULAR VOLUME 93 fL (79-100); MONO # 1.1 x10^3/uL (0.0-1.1); MONO % 11 % (0-9); NEUT % 61 % (31-73); PLATELET COUNT 285 x10^3/uL (140-400); RED BLOOD COUNT 5.14 x10^6/uL (4.30-5.70); RED CELL DISTRIBUTION WIDTH 14.8 % (11.5-14.5); WHITE BLOOD COUNT 9.9 x10^3/uL (4.0-11.0)
[2020-06-05 00:15] LABS: CALCIUM 8.8 mg/dL (8.5-10.1); CREATININE 0.9 mg/dL (0.7-1.3); GFR 92.1; POTASSIUM 3.5 mmol/L (3.5-5.1)
[2020-06-05 00:21] LABS: TOTAL BILIRUBIN 0.9 mg/dL (0.2-1.0)
--- NOTE | 2020-06-05 00:36 | RAD ---
Right lower extremity venous Doppler ultrasound History: Reason: swelling, calf pain / Comparison: None. Procedure: Color flow Doppler, Doppler spectral analysis, and 2D images are obtained with and without compression in the area of the common femoral vein, superficial femoral vein - femoral vein junction , main femoral vein (superficial femoral vein) and popliteal vein. Veins of the proximal calf are als o imaged. Findings: There is normal color flow, augmentation, and compressibility of all visualized vein segments. No lindsey dence of deep venous thrombus is present. IMPRESSION: No evidence of right lower extremity deep venous thrombosis. Electronically signed by: Miguel A Fuentes MD (06/05/2020 12:34 AM) [facility]
[2020-06-05 00:53] LABS: BILIRUBIN,URINE NEGATIVE (NEG); CLARITY,URINE CLEAR; COLOR,URINE YELLOW; NITRITE,URINE NEGATIVE (NEG); PH,URINE 6.5 (<5.0-8.0); PROTEIN,URINE NEGATIVE (NEG-TRACE); UROBILINOGEN,URINE 0.2 mg/dL (0.2 mg/dL)
[2020-06-05] MEDS ORDERED: IOHEXOL 350 MG/ML 100 ML VIAL. IV ONE (01:00)
[2020-06-05] MEDS ORDERED: CONTRAST GIVEN. MC PRN (01:00)
[2020-06-05 01:04] LABS: BACTERIA,URINE 0 /HPF (0-FEW); RBC,URINE 0 /HPF (0-2); WBC,URINE 0 /HPF (0-4)
--- NOTE | 2020-06-05 01:40 | RAD ---
PQRS Compliance Statement: One or more of the following individualized dose reduction techniques were utilized for this examinat ion: 1. Automated exposure control 2. Adjustment of the mA and/or kV according to patient size 3. Use of iterative reconstruction technique CT CHEST WITH CONTRAST, PULMONARY ANGIOGRAM History: Reason: PE?, LT SIDE CHEST PAIN, SOB, DIFFICUTLY BREATHING. Comparison: None. Technique: Helical CT of the chest was performed after the administration of 100 cc of Omnipaque 350 intravenous contrast according to PE protocol. Axial and coronal reconstructions were obtained. 3- D MIP images were constructed to better evaluate the pulmonary arteries. Findings: Pulmonary arteries are adequately opacified. There is no evidence of pulmonary embolism. There is no thoracic aortic dissection. Great vessels are normal caliber. There is no adenopathy in t he chest. Visualized thyroid is symmetric. Cardiac size is normal, no pericardial effusion. There is no pleural abnormality. The central airways are patent. There is groundglass opacity in the upper right middle lobe. There is moderate groundglass opacity in the posterior right lower lobe. The re is patchy groundglass opacity in the lateral left upper lobe. No lung consolidation. There is fatty infiltration of the liver. Thoracic spine alignment is maintained. IMPRESSION: 1. There is no pulmonary embolus. 2. There are groundglass opacities in the upper right middle lobe, posterior basilar right lower lob e, and lateral left upper lobe. Considerations include atelectasis or pneumonitis including atypical/ viral etiology or alveolar edema. 3. Fatty infiltration of the liver. Electronically signed by: Miguel A Fuentes MD (06/05/2020 1:37 AM) [facility]
--- NOTE | 2020-06-05 02:19 | EKG ---
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
[2020-06-05 02:52] VITALS: BP 141/82
== END 2020-06-05 03:04 | disposition home or self-care (01) ==
LOC: ER 23:14
DX: R07.89 Other chest pain (principal); M54.10 Radiculopathy, site unspecified; K76.0 Fatty (change of) liver, not elsewhere classified; I10 Essential (primary) hypertension; Z87.891 Personal history of nicotine dependence; F10.20 Alcohol dependence, uncomplicated; Y90.9 Presence of alcohol in blood, level not specified
CPT/HCPCS: 36415; 71275; 80053; 81001; 83880; 84484; 85025; 85379; 93005; 93971; 99285; Q9967